=== PATIENT | female | born 1975 | race Caucasian/White ===

== ENCOUNTER 2016-11-16 10:00 | Day surgery (SDC) | payer BC ==
[~2016-11-16 10:00] MED LIST: Acetaminophen/HYDROcodone 325-5 MG Tab PO PRN; Lactated Ringers 1,000 ML IV SCH; Sodium Chloride 0.9% 10 ML Syringe FLUSH PRN; ceFAZolin 1 GM in Sodium Chloride 0.9% 50 ML IV SCH
[2016-11-16] MEDS ORDERED: Midazolam 1 MG/ML 5 ML SDV ONE (14:30)
[2016-11-16] MEDS ORDERED: fentaNYL 250 MCG/5 ML SDV ONE (14:30)
[2016-11-16] MEDS ORDERED: Lidocaine 0.5% 50 ML SDV ONE (14:30)
[2016-11-16 15:58] VITALS: BP 141/61
--- NOTE | 2016-11-19 23:22 | OR ---
DATE OF OPERATION: 11/16/2016 PREOPERATIVE DIAGNOSIS: Right carpal tunnel syndrome. POSTOPERATIVE DIAGNOSIS: Right carpal tunnel syndrome. PROCEDURE: Right carpal tunnel release. ANESTHESIA: Josiah block. OLIVE GRADER: Sukhjinder Duarte RN. SPECIMENS: None. DRAINS: None. ESTIMATED BLOOD LOSS: Minimum. COMPLICATIONS: None apparent. DESCRIPTION OF PROCEDURE: After informed consent was obtained, the patient was brought to the operating room where a josiah block was performed uneventfully. The right upper extremity was prepped and draped sterilely. A time-out was held and antibiotics were confirmed. An incision was made in line with the radial border of the ring finger from Wynne's cardinal line to the volar wrist. We dissected sharply through the skin, subcutaneous tissue. Palmar aponeurosis done onto the transverse carpal ligament. We longitudinally incised the transverse carpal ligament just off the radial side of Hook of the hamate. We then released the distal aspect of the volar and a brachial fascia under direct visualization with sternotomies. We copiously irrigated and closed the skin with 4-0 nylon. Sterile dressings were applied. The patient was brought to the recovery room in stable having tolerated the procedure well with no apparent complications. DHEERAJ/JEANNIE /[id number]
== END 2016-11-16 15:45 | disposition home or self-care (01) ==
LOC: LB.SDS 10:00
PROVIDERS: ATTEND Orthopaedic Surgery
DX: G56.01 Carpal tunnel syndrome, right upper limb (principal)
CPT/HCPCS: 64721; J0690; J2250; J3010; J7050

== ENCOUNTER 2019-06-10 14:37 | Emergency (ER) | payer BC ==
--- NOTE | 2019-06-10 17:00 | ER ---
REASON FOR EMERGENCY ROOM VISIT: Left index finger laceration. 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 The slicer was not turned on, however, she turned abruptly and jammed her left index finger into the edge of the very sharp blade sustaining a laceration to the proximal left index finger. She came into the emergency room to have this evaluated and repaired. She denies any numbness in her fingertips. PAST MEDICAL HISTORY: Reviewed and see EMR. MEDICATIONS: Hydrochlorothiazide 25 mg p.o. daily. ALLERGIES: NONE TO MEDICATIONS. REVIEW OF SYSTEMS: Pertinent positives and negatives as in the HPI. PHYSICAL EXAMINATION: She has a 3 cm length circular laceration of the dorsal aspect of her left index finger. There is a pedicle of intact skin measuring approximately 7-8 mm in length, which appears to keep the flap viable as it does appear to be pink and viable. The skin edges were oozing nicely and the laceration only goes into the subcutaneous tissue with no evident involvement of bone or tendon. Distally her sensation is intact. IMPRESSION: Finger laceration FURTHER EMERGENCY ROOM COURSE: Her wound was soaked in surgical soap and water and then prepped with Betadine solution. 1% Xylocaine was used for local anesthesia. The avulsed flap of skin was carefully approximated with 5 interrupted 3-0 monofilament nylon sutures to give good approximation. The skin edges look viable. Bacitracin ointment was applied over which a tube gauze was applied as an occlusive dressing. The patient was instructed regarding symptoms and signs of infection. She is aware that the blood supply to this flap of skin might be somewhat tenuous and it is possible this entire flap of skin could slough away, but at the very least, we will provide a biologic dressing. I am nonetheless optimistic that this will survive. To be on the safe side, she should return to have her dressing changed in 2-3 days and she should anticipate suture removal in approximately 10 days' time. She knows to keep it clean and dry until then and use a glove if she is going to be working using her left hand. All questions were answered. She understands and agrees. It should also be added that her last tetanus toxoid, she is not actually certain of the exact date, but she does know that it is within the last 5 years. SIDDHARTH/JEANNIE /[id number] MTDD
[2019-06-11] MEDS ORDERED: Lidocaine 1% PF 2 ML SDV INJECT ONE (15:00)
[2019-06-11] MEDS ORDERED: Bacitracin Oint 1 GM U/D Packet TOP ONE (15:10)
== END 2019-06-10 15:35 | disposition home or self-care (01) ==
LOC: LB.ED 14:37
DX: S61.211A Laceration without foreign body of left index finger without damage to nail, initial encounter (principal); W29.0XXA Contact with powered kitchen appliance, initial encounter; Y92.009 Unspecified place in unspecified non-institutional (private) residence as the place of occurrence of the external cause; Y93.G9 Activity, other involving cooking and grilling
CPT/HCPCS: 12002; 99282; J2001

== ENCOUNTER 2020-12-24 16:13 | Emergency (ER) | payer BC ==
[2020-12-24] MEDS ORDERED: Albuterol 8 GM Inhaler INH ONE (16:30)
[2020-12-24] MEDS ORDERED: Albuterol 0.083% 2.5 MG/3 ML Neb Soln NEB ONE (17:25)
--- NOTE | 2020-12-24 17:30 | EDM.PDOC ---
ED HPI GENERAL MEDICAL PROBLEM - General Chief Complaint: Respiratory Problem Stated Complaint: COVID Symptoms Time Seen by Provider: 12/24/20 17:20 Source of Information: Reports: Patient History Limitations: Reports: No Limitations - History of Present Illness INITIAL COMMENTS - FREE TEXT/NARRATIVE: 45 year old female with PMH HTN presents to ED after being referred from Clinic. Patient was having a telehealth visit and the provider felt she was very SOB and advised her to go to ED. Patient tested negative for covid. She states that everyone in her home is ill with a respiratory illness. Denies any CP, n/v/d, CARCAMO, rash, abdominal pain. Has had low grade fevers and is taking OTC cough medication that seems to help somewhat. - Related Data Allergies Allergy/AdvReac Type Severity Reaction Status Date / Time No Known Allergies Allergy Verified 11/15/16 18:56 Home Meds: Home Meds Hydrochlorothiazide 25 mg PO DAILY 11/15/16 [History] Past Medical History - Past Health History Medical/Surgical History: Denies Medical/Surgical History Cardiovascular History: Reports: Hypertension - Past Surgical History Musculoskeletal Surgical History: Reports: Carpal Tunnel Other Musculoskeletal Surgeries/Procedures:: right hand Social & Family History - Family History Family Medical History: No Pertinent Family History - Caffeine Use Caffeine Use: Reports: Coffee ED ROS GENERAL - Review of Systems Review Of Systems: See Below Constitutional: Reports: Fever HEENT: Reports: No Symptoms Respiratory: Reports: Shortness of Breath, Cough Cardiovascular: Reports: No Symptoms Endocrine: Reports: No Symptoms GI/Abdominal: Reports: No Symptoms : Reports: No Symptoms Musculoskeletal: Reports: No Symptoms Skin: Reports: No Symptoms Neurological: Reports: No Symptoms Psychiatric: Reports: No Symptoms Hematologic/Lymphatic: Reports: No Symptoms Immunologic: Reports: No Symptoms ED EXAM, GENERAL - Physical Exam Exam: See Below Exam Limited By: No Limitations General Appearance: Alert, No Apparent Distress Eye Exam: Bilateral Eye: Normal Inspection, PERRL Ears: Normal External Exam, Hearing Grossly Normal Ear Exam: Bilateral Ear: Auricle Normal, Canal Normal, TM normal Nose: Normal Inspection Head: Atraumatic Neck: Normal Inspection, Non-Tender, Full Range of Motion Respiratory/Chest: No Respiratory Distress, Lungs Clear, Normal Breath Sounds Cardiovascular: Normal Peripheral Pulses, No Edema, No JVD, No Murmur, Tachycardia Peripheral Pulses: 3+: Carotid (L), Carotid (R), Radial (L), Radial (R), Dorsalis Pedis (L), Dorsalis Pedis (R) GI/Abdominal: Normal Bowel Sounds, Soft, Non-Tender Back Exam: Normal Inspection, Full Range of Motion Extremities: Normal Inspection, Normal Range of Motion, No Pedal Edema, Normal Capillary Refill Neurological: Alert, Oriented, Normal Cognition, Normal Gait, No Motor/Sensory Deficits Psychiatric: Normal Affect, Normal Mood Skin Exam: Warm, Dry, Intact Lymphatic: No Adenopathy Course - Vital Signs Last Recorded V/S: Last Vital Signs Temp Pulse 100 12/24/20 16:45 Resp 18 12/24/20 16:45 BP Pulse Ox 97 12/24/20 16:45 - Orders/Labs/Meds Orders: Active Orders 24 hr Category Date Time Status RT Aerosol Therapy [RC] ASDIRECTED Care 12/24/20 17:25 Ordered CXR [Chest 1V Frontal] [CR] Stat Exams 12/24/20 17:06 Ordered Albuterol [Proventil Neb Soln] Med 12/24/20 17:25 Once 2.5 mg NEB ONETIME ONE Labs: Laboratory Tests 12/24/20 Range/Units 16:20 SARS CoV-2 RNA Rapid LISA Negative Departure - Departure Time of Disposition: 17:31 Disposition: Home, Self-Care 01 Condition: Good Clinical Impression: URI (upper respiratory infection) Qualifiers: URI type: unspecified viral URI Qualified Code(s): J06.9 - Acute upper respiratory infection, unspecified - Discharge Information *PRESCRIPTION DRUG MONITORING PROGRAM REVIEWED*: Not Applicable *COPY OF PRESCRIPTION DRUG MONITORING REPORT IN PATIENT ADRIEN: Not Applicable Instructions: Shortness of Breath, Adult, [id number], Upper Respiratory Infection, Adult, [id number] Referrals: PCP,None [Primary Care Provider] - Additional Instructions: Use the inhaler at home as directed. Return to ED for any increased or new concerning symptoms. Follow up in clinic is symptoms persist. Drink plenty of fluids, tylenol and/or ibuprofen as needed for fevers. Drink pineapple juice to help soothe the cough and expell mucus. Sleep propped up. Sepsis Event Note (ED) - Evaluation Sepsis Screening Result: No Definite Risk - Focused Exam Vital Signs: Vital Signs Pulse Resp Pulse Ox 12/24/20 16:45 100 18 97 - My Orders Last 24 Hours: My Active Orders 12/24/20 17:06 CXR [Chest 1V Frontal] [CR] Stat 12/24/20 17:25 RT Aerosol Therapy [RC] ASDIRECTED Albuterol [Proventil Neb Soln] 2.5 mg NEB ONETIME ONE - Assessment/Plan Last 24 Hours: My Active Orders 12/24/20 17:06 CXR [Chest 1V Frontal] [CR] Stat 12/24/20 17:25 RT Aerosol Therapy [RC] ASDIRECTED Albuterol [Proventil Neb Soln] 2.5 mg NEB ONETIME ONE
[2020-12-24] MEDS ORDERED: Albuterol/Ipratropium 3.0-0.5 MG/3 ML Neb Soln ONE (17:33)
--- NOTE | 2020-12-25 16:01 | CR ---
DATE OF SERVICE: 12/24/2020 CLINICAL DATA: Cough. AP CHEST: No priors. The heart size is normal. The lungs are clear. No pneumothorax. No pleural effusions. No evidence of acute intrathoracic disease. [id number] MTDD
== END 2020-12-24 17:50 | disposition home or self-care (01) ==
LOC: LB.ED 16:13
DX: J06.9 Acute upper respiratory infection, unspecified (principal); I10 Essential (primary) hypertension; Z20.822 Contact with and (suspected) exposure to COVID-19; Z79.899 Other long term (current) drug therapy
CPT/HCPCS: 71045; 99282; 99285-25; A9270-GY; U0002

== ENCOUNTER 2023-02-18 09:37 | Emergency (ER) | payer OTHER ==
[2023-02-18 10:28] LABS: BASOPHILS ABSOLUTE AUTO 0.02 K/uL (0.02-0.10); BASOPHILS PERCENT AUTO 0.2 % (0.0-0.5); EOSINOPHILS ABSOLUTE AUTO 0.11 K/uL (0.04-0.40); EOSINOPHILS PERCENT AUTO 1.2 % (1.0-5.0); HEMATOCRIT 40.7 % (37.0-47.0); HEMOGLOBIN 13.6 g/dL (11.5-16.5); LYMPHOCYTES ABSOLUTE AUTO 1.11 K/uL (1.50-4.00); LYMPHOCYTES PERCENT AUTO 12.2 % (20.0-40.0); MEAN CORPUSCULAR HEMOGLOBIN 26.7 pg (27.0-32.0); MEAN CORPUSCULAR HGB CONC 33.4 g/dL (31.0-35.0); MEAN CORPUSCULAR VOLUME 80 fL (76-96); MEAN PLATELET VOLUME 10.2 fL (6.0-10.0); MONOCYTES ABSOLUTE AUTO 0.58 K/uL (0.20-0.80); MONOCYTES PERCENT AUTO 6.4 % (3.0-10.0); PLATELET COUNT,PLT 238 K/uL (150-500); WHITE BLOOD CELL COUNT,WBC 9.1 K/uL (4.0-11.0)
[2023-02-18 10:55] LABS: A/G RATIO 0.8 (0.8-2.0); ALBUMIN 3.4 g/dL (3.4-5.0); ANION GAP 15.2 mmol/L (5.0-15.0); BILIRUBIN TOTAL 0.4 mg/dL (0.0-1.0); BUN/CREATININE RATIO 15.7 (6-25); CALCIUM 9.1 mg/dL (8.5-10.1); CARBON DIOXIDE,CO2 26.1 mmol/L (21.0-32.0); CREATININE 0.83 mg/dL (0.55-1.02); EST CRCL DRUG DOSING (CG) 80.13 mL/min; POTASSIUM,K 3.3 mmol/L (3.5-5.1); PROTEIN TOTAL,TP 7.6 g/dL (6.4-8.2); TROPONIN I HIGH SENSITIVITY 10.9 pg/ml (<=60.4)
[2023-02-18 10:59] LABS: APPEARANCE,URINE CLOUDY (CLEAR); BILIRUBIN,URINE NEGATIVE (NEGATIVE); COLOR,URINE YELLOW; GLUCOSE,URINE NEGATIVE (NEGATIVE); KETONES,URINE NEGATIVE (NEGATIVE); LEUKOCYTE ESTERASE,URINE SMALL (NEGATIVE); NITRITE,URINE NEGATIVE (NEGATIVE); OCCULT BLOOD,URINE SMALL (NEGATIVE); PROTEIN,URINE 100 mg/dL (NEGATIVE); UROBILINOGEN,URINE 0.2 E.U./dL (0.2-1.0)
[2023-02-18 11:06] LABS: BACTERIA,URINE MODERATE /HPF; RBC,URINE 0-5 /HPF; SQUAMOUS EPITHELIAL CELLS,UR MODERATE /HPF; WBC,URINE 30-40 /HPF
[2023-02-18 11:07] LABS: AMORPHOUS SEDIMENT,URINE MODERATE /HPF
[2023-02-18] MEDS: Sodium Chloride 0.9% 1,000 ML IV ONE (11:33)
[2023-02-18] MEDS: Potassium Chloride 20 MEQ Tab.ER PO ONE (11:37)
== END 2023-02-18 12:41 | disposition home or self-care (01) ==
LOC: LB.ED 09:37
DX: R55 Syncope and collapse (principal); I10 Essential (primary) hypertension; Z79.899 Other long term (current) drug therapy
CPT/HCPCS: 36415; 70450; 71045; 80053; 81001; 81025; 84484; 85025; 87086; 93005; 93010; 96360; 99283; 99285-25; A0425; A0429; A9270-GY; J7030

== ENCOUNTER 2025-05-29 10:51 | Day surgery (SDC) | payer BC ==
[2025-05-29] MEDS ORDERED: Propofol 200 MG/20 ML SDV ONE (13:45)
== END 2025-05-29 14:55 | disposition home or self-care (01) ==
LOC: LB.SDS 10:51
PROVIDERS: ATTEND Surgery
DX: Z12.11 Encounter for screening for malignant neoplasm of colon (principal); R19.5 Other fecal abnormalities; I10 Essential (primary) hypertension; E78.5 Hyperlipidemia, unspecified; Z80.0 Family history of malignant neoplasm of digestive organs; Z79.899 Other long term (current) drug therapy
CPT/HCPCS: J2704; J7030